=== PATIENT | female | born 2000 ===

== ENCOUNTER → 2025-08-25 01:39 | Outpatient (CLI) | payer MEDICAID, SELFPAY ==
--- NOTE | 2025-08-25 07:30 | DI.US_ITS ---
Exam(s) US OB 2-3 TRIMESTER EXAM: US OB 2-3 TRIMESTER CLINICAL HISTORY: 19 wk anatomy survey,Z34.90. TECHNIQUE: Transabdominal obstetrical ultrasound performed. COMPARISON: No exams were available for comparison FINDINGS: Number of fetuses: 1 position: Variable Placental location: Anterior. No evidence of previa. BIOMETRIC DATA: BPD: 43 mm, 19+ 0 weeks HC: 169 mm, 19+ 4 weeks AC: 148 mm, 20+ 1 weeks FL: 30 mm, 19+ 2 weeks Cisterna magna: 5 mm Cerebellum: 1.9 cm Lateral ventricle: 5.6 mm EFW: 305 grams, 59 % Composite Age: 19+ 4 weeks CATRACHO: 15 January 2026, Heart Rate: 143 BPM Amniotic fluid: Amount of fluid is visually within normal limits. ANATOMICAL SURVEY: Four-chambered heart: Unremarkable. LVOT: Unremarkable. RVOT: Unremarkable. Left-sided stomach: Unremarkable. urinary bladder: Unremarkable. Bilateral kidneys: Unremarkable. Three-vessel cord: Unremarkable. Cord insertion: Unremarkable. Posterior fossa:Unremarkable. ventricles: Unremarkable. nose: Unremarkable. lips: Unremarkable. palate: Unremarkable. spine: Unremarkable. Two arms and two legs: Unremarkable. IMPRESSION: 1. Single live intrauterine gestation with composite age of 19 weeks 4 days. 2. Normal anatomic survey. DATA REPOSITORY:
== END ==
LOC: DI 01:39
PROVIDERS: PCP Nurse Practitioner Family; Visit Provider Advanced Practice Midwife
DX: Z34.92 Encounter for supervision of normal pregnancy, unspecified, second trimester (principal); Z3A.20 20 weeks gestation of pregnancy
CPT/HCPCS: 76805